=== PATIENT | female | born 1985 | race Caucasian/White ===

== ENCOUNTER 2017-10-26 10:23 | Emergency (ER) | payer BC ==
[~2017-10-26] VITALS: Ht 175.3 cm; Wt 77.1 kg
[2017-10-26] MEDS ORDERED: PERCOCET 5-3251 EACH PO (11:10)
[2017-10-26] MEDS ORDERED: AMOX1TAB5 PO (11:10)
== END 2017-10-26 11:39 | disposition home or self-care (01) ==
LOC: ER 10:23
DX: J03.90 Acute tonsillitis, unspecified (principal); M54.5 Low back pain